=== PATIENT | male | born 1975 | race Caucasian/White ===

== ENCOUNTER 2023-08-03 07:07 | Outpatient (CLI) | payer OTHER | END 2023-08-03 07:08 | disposition home or self-care (01) | LOC: BICMRI 07:07 | PROVIDERS: ATTEND Family Medicine Sports Medicine | DX: M24.151 Other articular cartilage disorders, right hip (principal); M21.951 Unspecified acquired deformity of right thigh; M16.11 Unilateral primary osteoarthritis, right hip; S73.191D Other sprain of right hip, subsequent encounter; M46.1 Sacroiliitis, not elsewhere classified; M67.853 Other specified disorders of tendon, right hip ==

== ENCOUNTER 2024-10-10 07:09 | Outpatient (CLI) | payer BC | END 2024-10-10 07:10 | disposition home or self-care (01) | LOC: SCSMRI 07:09 | PROVIDERS: ATTEND Family Medicine Sports Medicine | DX: S43.20 Unspecified subluxation and dislocation of sternoclavicular joint (principal); M25.48 Effusion, other site | CPT/HCPCS: 71550 ==